=== PATIENT | female | born 1995 ===

== ENCOUNTER 2019-03-12 18:12 | Emergency (ER) | payer OTHER ==
[~2019-03-12] VITALS: Ht 157.5 cm; Wt 88.5 kg
[~2019-03-12 18:12] MED LIST: AMOXICILLIN875 MG PO; MOTRIN800 MG PO; ORPH100T PO
== END 2019-03-12 19:25 | disposition home or self-care (01) ==
LOC: ER 18:12
DX: N94.6 Dysmenorrhea, unspecified (principal)

== ENCOUNTER 2021-07-04 11:40 | Emergency (ER) | payer OTHER ==
[~2021-07-04] VITALS: Ht 160 cm; Wt 93.0 kg
[2021-07-04] MEDS ORDERED: FLONASE ALLERG9.9 ML NASAL (17:22)
[2021-07-04] MEDS ORDERED: MUCINEX DM ER1 EAC1 PO (17:22)
[2021-07-04] MEDS ORDERED: ZITHROMAX500 MG PO (17:22)
[2021-07-04] MEDS ORDERED: KETO10TA2 PO (17:22)
== END 2021-07-04 19:45 ==
LOC: ER 11:40
DX: A49.3 Mycoplasma infection, unspecified site (principal); Z03.818 Encounter for observation for suspected exposure to other biological agents ruled out; E86.0 Dehydration; B34.9 Viral infection, unspecified